=== PATIENT | male | born 1960 | race Caucasian/White ===

== ENCOUNTER 2022-07-14 07:48 | Day surgery (SDC) | payer SELFPAY ==
[2022-07-14] MEDS ORDERED: Ringers Lactate 1,000 ML IV ONE (08:16)
[2022-07-14 08:49] VITALS: O2SAT 100
[2022-07-14] MEDS ORDERED: propofoL 200 MG/20 ML VIAL IV ONE ×2 (09:51→10:42)
[2022-07-14] MEDS ORDERED: LIDOCAINE 1% MPF 5 ML VIAL ONE (09:51)
[2022-07-14] MEDS ORDERED: MIDAZOLAM HCL 2 MG/2 ML INJ ONE (10:16)
[2022-07-14] MEDS ORDERED: FENTANYL CITR 100 MCG/2 ML ONE (10:28)
[2022-07-14 12:14] LABS: Specific Gravity 1.022 (1.005-1.030); Urine Bacteria None Seen /HPF (<20); Urine Bilirubin NEGATIVE (Negative); Urine Blood Negative (Negative); Urine Clarity Clear (Clear); Urine Color Light-Yellow (Yellow); Urine Crystals Unidentified Few /HPF (None Seen); Urine Glucose NEGATIVE (Negative); Urine Mucus Slight /HPF (None Seen); Urine Protein TRACE (Negative); Urine RBC <5 /HPF (None Seen); Urine Urobilinogen Normal (Normal)
[2022-07-14 13:09] VITALS: TEMP 97.4
[2022-07-14 13:11] VITALS: BP 134/68
== END 2022-07-14 11:47 | disposition home or self-care (01) ==
LOC: OR 07:48
PROVIDERS: ATTEND Internal Medicine Gastroenterology
PROC: 0DJD8ZZ Inspection of Lower Intestinal Tract, Via Natural or Artificial Opening Endoscopic (ICD-10-PCS; 2022-07-14)
PROC: 0DB68ZX Excision of Stomach, Via Natural or Artificial Opening Endoscopic, Diagnostic (ICD-10-PCS; principal; 2022-07-14 09:15)
PROC: 0DB88ZX Excision of Small Intestine, Via Natural or Artificial Opening Endoscopic, Diagnostic (ICD-10-PCS; 2022-07-14 09:15)
DX: R10.13 Epigastric pain (principal); D50.0 Iron deficiency anemia secondary to blood loss (chronic); K21.9 Gastro-esophageal reflux disease without esophagitis; K29.50 Unspecified chronic gastritis without bleeding; K44.9 Diaphragmatic hernia without obstruction or gangrene; K92.1 Melena; Z80.0 Family history of malignant neoplasm of digestive organs; Z86.010 Personal history of colon polyps; K64.8 Other hemorrhoids; K64.4 Residual hemorrhoidal skin tags
CPT/HCPCS: 81001; 88305; 88312; J2001; J2250; J2704; J3010; J7120